=== PATIENT | male | born 1975 | race Two or more races ===

== ENCOUNTER 2025-04-02 07:25 | Day surgery (SDC) | payer MEDICAID, SELFPAY ==
[2025-03-31 10:15] VITALS: BMI 56.1
--- NOTE | 2025-03-31 10:23 | EKG_ITS ---
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
[2025-03-31 11:15] LABS: Basophils # (Auto) 0.1 Thou/mm3 (0.0-0.2); Basophils % (Auto) 1 % (0-2.5); Eosinophils # (Auto) 0.4 Thou/mm3 (0.0-0.5); Eosinophils % (Auto) 5 % (0-10); Hematocrit 43.7 % (41.0-53.0); Hemoglobin 15.4 g/dL (13.5-16.0); Immature Granulocytes Auto 0.02 Thou/mm3 (0.00-0.00); Lymphocytes # (Auto) 2.3 Thou/mm3 (1.0-4.8); Lymphocytes % (Auto) 30 % (10-50); Mean Corpuscular HGB Conc 35.2 g/dl (31.0-37.0); Mean Corpuscular Hemoglobin 29.9 pg (25.0-35.0); Mean Corpuscular Volume 85 fL (80-100); Monocytes # (Auto) 0.5 Thou/mm3 (0.0-0.8); Monocytes % (Auto) 7 % (0-12); Neutrophils # (Auto) 4.4 Thou/mm3 (1.8-7.7); Neutrophils % (Auto) 58 % (37-80); Nucleated Red Blood Cell # 0.00 Thou/mm3 (0.00-0.00); Nucleated Red Blood Cell % 0 /100 WBC (0); Platelet Count 281 Thou/mm3 (140-440); RDW Standard Deviation 40.8 fL (35.1-43.9); Red Blood Count 5.15 Miln/mm3 (4.50-5.90); White Blood Count 7.6 Thou/mm3 (3.8-10.6)
[2025-03-31 11:35] LABS: Alanine Aminotransferase 31 U/L (10-49); Albumin, Serum 4.4 gm/dL (3.5-5.0); Albumin/Globulin Ratio 1.4 (1.2-2.2); Alkaline Phosphatase 75 U/L (46-116); Anion Gap 9 (7-16); Aspartate Amino Transferase 30 U/L (0-34); BUN/Creatinine Ratio 13 Ratio (12-20); Bilirubin,Total 1.3 mg/dL (0.3-1.2); Blood Urea Nitrogen 15 mg/dL (9-23); Calcium 8.8 mg/dL (8.3-10.6); Calcium (Corrected) 8.8 mg/dL (8.5-10.1); Carbon Dioxide 31.2 mMol/L (20.0-31.0); Chloride 102 mMol/L (98-107); Creatinine (Component) 1.2 mg/dL (0.6-1.3); Estimated Creatinine Clearance 118.6 mL/min (>60); Globulin 3.1 gm/dL (2.3-3.5); Glucose 156 mg/dL (74-106); Osmolality,Calculated 286 (275-295); Potassium 3.6 mMol/L (3.4-5.1); Sodium 142 mMol/L (136-145); Total Protein 7.5 gm/dL (5.7-8.2); eGFR > 60 See Note
[2025-03-31 11:41] LABS: INR 1.0 (0.9-1.3); Partial Thromboplastin Time 26.6 Seconds (22.0-36.0); Prothrombin Time 11.1 Seconds (9.0-12.2)
[2025-04-02] VITALS (10 sets, daily range): BP systolic 146–183; BP diastolic 91–117; PULSE 88–95; RESP 13–22; TEMP 36.3–36.7; O2SAT 95–100; BMI 60.2
--- NOTE | 2025-04-02 07:27 | ESHP_ITS ---
RE: ALISTAIR CACERES : 1975 DATE OF ADMISSION: 04/02/2025 DATE OF SURGERY: 04/02/2025 This patient is a 49-year-old male who was seen at the [facility] on 02/16/2025. He was seen for consultation for a large mass over the inside of the right thigh. The patient noticed this large soft tissue mass over the right thigh about 2 years ago, but he is not sure whether it was there in the past. Now, it is interfering with his activities and is not able to even sit up and drive the car or use a bicycle. The patient is a morbidly obese male, weighing about 390 pounds. 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 PAST MEDICAL HISTORY: Consists of hypertension. He denies any history of arthritis or diabetes. He denies any surgery in the past. PRESENT MEDICATIONS: Consist of: 1. Hydrochlorothiazide. 2. Naproxen. PHYSICAL EXAMINATION: GENERAL: Morbidly obese male who is 5 feet 9 inches, weighing 290 pounds with a BMI of 60.42. VITAL SIGNS: Temperature of 98.1, pulse 80, BP was 156/93. HEENT: Exam of the head normal. Eyes, ears, nose, throat normal. LUNGS: Normal. NECK: Normal. HEART: Sinus rhythm. ABDOMEN: Difficult to evaluate because of obesity. EXTREMITIES: Examination of the right groin revealed a large mass over the inner aspect of the right thigh. This mass on the medial aspect extending all the way to the groin and it is at least about 20 cm in length, 15 cm in width. The patient also has some stasis dermatitis in the leg. IMPRESSION: 1. Mass right thigh, possibly a large lipoma. 2. Morbid obesity. 3. Essential hypertension. 4. Sleep apnea. 5. Hyperlipidemia. COURSE OF ACTION: Advised the patient to undergo excision of this mass under general anesthesia. Unfortunately, because of his obesity, the patient is prone to have complications including wound infection, persistent drainage and possibility of a recurrence. I also mentioned to him that we may not be able to remove the lesion completely because it is difficult to separate this from the surrounding tissues. The patient is agreeable and wants to go forward with the procedure. DT: :11:02 TT: 07:25:00 Ref: [id number] - TID: [id number]
--- NOTE | 2025-04-02 09:00 | SUR.PREOP ---
Patient expressed gratitude for prayer before their procedure.
--- NOTE | 2025-04-02 12:04 | PD.SUROPNT ---
Date of Procedure 04/02/25 Pre Op Diagnosis Large lipoma over the medial right thigh Post Op Diagnosis Same Procedure Excision of the lipoma right thigh near groin Findings Patient was found to have a very large soft tissue mass located medially on the right thigh close to the groin. It measured 20 cm x 10 cm. Procedure Description The patient was brought operating room he was given LMA anesthesia. Then his legs were frog-legged and the inner thigh was prepared with ChloraPrep solution. His scrotum was lifted up and taped away from the area of incision. Timeout was performed. Then I made a long incision measuring at least about 15 cm over the medial aspect of the right thigh and removed the subcutaneous fat which was diffuse and mixed with the normal fat. This mass was not well encapsulated. Some of the mass were removed in piecemeal fashion the bleeding points are controlled with cautery and some of them were suture-ligated with 2-0 chromic. At the end using hot packs I checked for the bleeding on the left and #10 round Rodolfo-Sawyer and attached it to the skin with 2 silk then I approximated the subcutaneous tissue after removing a small portion of the skin to to avoid redundancy. 3-0 chromic was used for the subcutaneous stitch and the skin was stapled after injecting local anesthesia with Marcaine. Dressing was applied with Adaptic and 4 x 4 gauze and patient tolerated the procedure well. Anesthesia other (General LMA) Pathology / specimen Other (A large lipoma) IVF Infused 800 Estimated Blood Loss 100 Surgeon Gloria Solomon MD Surgical Staff Operation Date: 04/02/25 09:45 Case Staff Anesthesiologist: Dylon Paula RN First Assistant: John Ziegler
[2025-04-02] MEDS: hydrALAZINE INJ 20 MG/ML VIAL 10 MG IVP (12:18)
--- NOTE | 2025-04-02 12:20 | SUR.PHASEI ---
1142: Pt received in [facility] via gurney. Pt obtunded. Resp even, unlabored but with very loud snoring. BP elevated. Pt has hx of HTN. Anesthesia recommends no action at this time. Dressing to right medial thigh dry, clean, intact with compressed NASH drain. Small amount of dark red drainage. 1210: Pt has been resting with no complaints voiced. Resp even, unlabored. BP remains elevated. Will notify anesthesia. Dressing remains dry, clean, intact. NASH drain compressed with small amount of dark red drainage.
--- NOTE | 2025-04-02 14:24 | SUR.PHASEII ---
1218: Pt has been resting with no complaints voiced. BP remained elevated at 176/111. Anesthesia notified. Received new order for Hydralazine which was administered at this time. 1230: BP coming down at 146/91. 1240: Pt more awake, alert. Sitting up tolerating po fluids with no difficulty swallowing and no n/v. 1245: NASH drain emptied of 20cc dark red drainage and compressed. at bedside. 1310: Pt fully awake, oriented x3. BP is still elevated but is within pre-op baseline. Recommended to pt to follow up with his primary physician. Pt and also instructed on NASH drain care and scheduled follow up appointment with Dr. Solomon. Both stated understanding of discharge instructions. Pt discharged from [facility] in stable condition.
== END 2025-04-02 13:10 | disposition home or self-care (01) ==
PROVIDERS: PCP Physician Assistant Medical; Referring Provider Surgery; Visit Provider Surgery
PROC: (CPT 27337; principal; 2025-04-02 09:45)
DX: D17.23 Benign lipomatous neoplasm of skin and subcutaneous tissue of right leg (principal); E66.01 Morbid (severe) obesity due to excess calories; E78.5 Hyperlipidemia, unspecified; G47.30 Sleep apnea, unspecified; I10 Essential (primary) hypertension; Z01.810 Encounter for preprocedural cardiovascular examination
CPT/HCPCS: 27337; 36415; 80053; 85025; 85610; 85730; 93005; A4217; A4649; J0131; J0360; J0461; J1100; J1885; J2250; J2405; J2704; J3010